=== PATIENT | male | born 1985 | race Caucasian/White ===

== ENCOUNTER → 2020-12-24 11:24 | Outpatient (CLI) | payer BC, SELFPAY ==
[2020-12-24 12:06] LABS: Hematocrit 40.6 % (41-53); Hemoglobin 13.4 g/dL (13.5-17.5); Mean Corpuscular HGB Conc 33.1 % (30-36); Mean Corpuscular Hemoglobin 26.3 PG (26-34); Mean Corpuscular Volume 79.5 fL (80-100); Platelet Count 158 X10^3/uL (150-400); Red Blood Cell Count 5.11 X10^6/uL (4.5-5.9); Red Cell Distribution Width 13.7 % (11.6-14.8); White Blood Cell Count 5.2 X10^3/uL (4.5-11.0)
[2020-12-24 12:18] LABS: Alanine Aminotransferase 36 IU/L (<50); Albumin 4.1 g/dL (3.5-5.0); Albumin Globulin Ratio 1.5 (1.0-2.8); Alkaline Phosphatase 76 U/L (38-126); Aspartate Aminotransferase 22 IU/L (17-59); BUN Creatinine Ratio 11.6 (6-22); Bilirubin Total 0.4 mg/dL (0.2-1.3); Blood Urea Nitrogen 10 mg/dL (9-20); Calcium 9.1 mg/dL (8.4-10.2); Carbon Dioxide 30 mmol/L (22-32); Chloride 106 mmol/L (98-107); Cholesterol 207 mg/dL (140-199); Estimated Glomerular Filt Rate > 60.0 mL/min (>60); Globulin 2.8 g/dL (1.7-4.1); Glucose 91 mg/dL (70-100); HDL Cholesterol 25 mg/dL (40-60); HEMOLYSIS < 15 (0-50); LDL Cholesterol Calculated 116 mg/dL (<100); Potassium 4.3 mmol/L (3.4-5.1); Sodium 139 mmol/L (137-145); Total Protein 6.9 g/dL (6.3-8.2); Triglycerides 329 mg/dL (35-150)
[2020-12-24 12:26] LABS: Hemoglobin A1C% w Est Avg Glu 5.5 % (4.0-6.0)
[2020-12-24 12:29] LABS: HEMOLYSIS < 15 (0-50)
[2020-12-24 12:32] LABS: Iron 81 ug/dL (49-181)
[2020-12-24 12:40] LABS: Transferrin 258 mg/dL (206-381)
[2020-12-24 12:45] LABS: Percent Iron Saturation 23 % (20-50); Total Iron Binding Capacity 352 ug/dL (261-462)
[2020-12-24 12:48] LABS: Ferritin 37 ng/mL (18-464)
[2020-12-24 13:07] LABS: Thyroid Stimulating Hormone 1.49 uIU/mL (0.47-4.68)
[2020-12-24 13:19] LABS: Folate > 20.0 ng/mL (2.76-20.0); Vitamin B12 457 pg/mL (239-931)
[2020-12-26 00:51] LABS: Zinc 91 ug/dL (44-115)
[2020-12-26 19:49] LABS: Vitamin D 25 Hydroxy (D3) 19.2 ng/mL (30.0-100.0)
[2020-12-27 00:35] LABS: Vitamin B1 107.7 nmol/L (66.5-200.0)
[2020-12-27 12:22] LABS: Vitamin A 47.3 ug/dL (18.9-57.3)
== END ==
PROVIDERS: PCP Physician Assistant; Referring Provider Surgery; Visit Provider Surgery
DX: Z71.3 Dietary counseling and surveillance (principal)
CPT/HCPCS: 36415; 80053; 80061; 82306; 82607; 82728; 82746; 83036; 83540; 83550; 84425; 84443; 84590; 84630; 85027

== ENCOUNTER → 2022-09-10 10:52 | Outpatient (CLI) | payer OTHER, SELFPAY ==
[2022-09-10 12:28] LABS: Add Manual Diff / Slide Review NO; Basophils Absolute Auto 0 /uL (0-100); Basophils Percent Auto 0.7 % (0-2); Eosinophils Absolute Auto 100 /uL (0-450); Eosinophils Percent Auto 1.8 % (2-4); Hematocrit 43.2 % (41-53); Hemoglobin 14.6 g/dL (13.5-17.5); Lymphocytes Absolute Auto 1400 /uL (1100-4500); Lymphocytes Percent Auto 35.4 % (25-40); Mean Corpuscular HGB Conc 33.9 % (30-36); Mean Corpuscular Hemoglobin 27.5 PG (26-34); Mean Corpuscular Volume 81.3 fL (80-100); Monocytes Absolute Auto 300 /uL (0-900); Monocytes Percent Auto 7.5 % (3-14); Neutrophils Absolute Auto 2100 /uL (1500-7000); Neutrophils Percent Auto 54.6 % (50-75); Platelet Count 147 X10^3/uL (150-400); Red Blood Cell Count 5.31 X10^6/uL (4.5-5.9); White Blood Cell Count 3.8 X10^3/uL (4.5-11.0)
[2022-09-10 12:35] LABS: Alanine Aminotransferase 40 IU/L (<50); Albumin 4.6 g/dL (3.5-5.0); Albumin Globulin Ratio 1.7 (1.0-2.8); Alkaline Phosphatase 66 U/L (38-126); Aspartate Aminotransferase 22 IU/L (17-59); BUN Creatinine Ratio 20.9 (6-22); Bilirubin Total 1.1 mg/dL (0.2-1.3); Blood Urea Nitrogen 18 mg/dL (9-20); Calcium 9.8 mg/dL (8.4-10.2); Carbon Dioxide 31 mmol/L (22-32); Chloride 103 mmol/L (98-107); Cholesterol 199 mg/dL (140-199); Estimated Glomerular Filt Rate > 60 mL/min (>60); Globulin 2.7 g/dL (1.7-4.1); Glucose 75 mg/dL (70-100); HDL Cholesterol 42 mg/dL (40-60); HEMOLYSIS < 15 (0-50); LDL Cholesterol Calculated 124 mg/dL (<100); Potassium 4.1 mmol/L (3.4-5.1); Sodium 140 mmol/L (137-145); Total Protein 7.3 g/dL (6.3-8.2); Triglycerides 167 mg/dL (35-150)
[2022-09-10 12:55] LABS: HEMOLYSIS < 15 (0-50); Iron 199 ug/dL (49-181)
[2022-09-10 13:05] LABS: Percent Iron Saturation 69 % (20-50); Total Iron Binding Capacity 290 ug/dL (261-462); Transferrin 243 mg/dL (206-381)
[2022-09-10 13:07] LABS: Prostate Specific Antigen 1.33 ng/mL (0.10-4.00)
[2022-09-10 13:11] LABS: Ferritin 79 ng/mL (18-464)
[2022-09-10 13:26] LABS: Vitamin B12 750 pg/mL (239-931)
[2022-09-10 13:39] LABS: Luteinizing Hormone 2.16 mIU/mL
[2022-09-10 16:41] LABS: Vitamin D 25 Hydroxy (D3) 42.6 ng/mL (30.0-100.0)
[2022-09-11 10:15] LABS: Sex Hormone Binding Globulin 40.3 nmol/L (16.5-55.9)
[2022-09-12 00:09] LABS: Calcium 9.9 mg/dL (8.7-10.2); Parathyroid Hormone, Intact 28 pg/mL (15-65)
[2022-09-17 12:19] LABS: Testosterone Fr+Wkly bound 109.5 ng/dL (40.0-250.0); Testosterone, Total 497.9 ng/dL (264.0-916.0)
== END ==
PROVIDERS: PCP Family Medicine; Referring Provider Family Medicine; Visit Provider Family Medicine
DX: E29.1 Testicular hypofunction (principal); E34.9 Endocrine disorder, unspecified; E61.9 Deficiency of nutrient element, unspecified; Z98.84 Bariatric surgery status; I48.0 Paroxysmal atrial fibrillation
CPT/HCPCS: 36415; 80053; 80061; 82306; 82310; 82607; 82728; 82746; 83001; 83002; 83540; 83550; 83970; 84153; 84270; 84403; 85025

== ENCOUNTER → 2023-04-08 13:12 | Outpatient (CLI) | payer OTHER, SELFPAY ==
[2023-04-08 13:51] LABS: Add Manual Diff / Slide Review NO; Basophils Absolute Auto 0 /uL (0-100); Basophils Percent Auto 0.6 % (0-2); Eosinophils Absolute Auto 200 /uL (0-450); Eosinophils Percent Auto 3.5 % (2-4); Hematocrit 39.3 % (41-53); Hemoglobin 13.2 g/dL (13.5-17.5); Lymphocytes Absolute Auto 1500 /uL (1100-4500); Lymphocytes Percent Auto 28.4 % (25-40); Mean Corpuscular HGB Conc 33.6 % (30-36); Mean Corpuscular Hemoglobin 27.3 PG (26-34); Monocytes Absolute Auto 500 /uL (0-900); Neutrophils Absolute Auto 3100 /uL (1500-7000); Neutrophils Percent Auto 58.5 % (50-75); Platelet Count 133 X10^3/uL (150-400); Red Blood Cell Count 4.85 X10^6/uL (4.5-5.9); Red Cell Distribution Width 13.4 % (11.6-14.8); White Blood Cell Count 5.3 X10^3/uL (4.5-11.0)
[2023-04-08 14:01] LABS: Alanine Aminotransferase 55 IU/L (<50); Albumin 4.2 g/dL (3.5-5.0); Albumin Globulin Ratio 1.7 (1.0-2.8); Alkaline Phosphatase 60 U/L (38-126); Aspartate Aminotransferase 28 IU/L (17-59); BUN Creatinine Ratio 20.5 (6-22); Bilirubin Total 0.7 mg/dL (0.2-1.3); Blood Urea Nitrogen 17 mg/dL (9-20); Calcium 8.9 mg/dL (8.4-10.2); Carbon Dioxide 29 mmol/L (22-32); Chloride 104 mmol/L (98-107); Estimated Glomerular Filt Rate > 60 mL/min (>60); Globulin 2.5 g/dL (1.7-4.1); Glucose 79 mg/dL (70-100); HEMOLYSIS < 15 (0-50); Potassium 3.7 mmol/L (3.4-5.1); Sodium 139 mmol/L (137-145); Total Protein 6.7 g/dL (6.3-8.2)
[2023-04-08 14:32] LABS: Prostate Specific Antigen 0.543 ng/mL (0.10-4.00); TSH w/ Reflex to FT4 1.86 uIU/mL (0.47-4.68)
[2023-04-08 14:34] LABS: Testosterone 407 ng/dL (132-813)
== END ==
PROVIDERS: PCP Nurse Practitioner Family; Referring Provider Nurse Practitioner Family; Visit Provider Nurse Practitioner Family
DX: E29.1 Testicular hypofunction (principal); F90.9 Attention-deficit hyperactivity disorder, unspecified type
CPT/HCPCS: 36415; 80053; 84153; 84403; 84443; 85025

== ENCOUNTER → 2023-08-17 10:16 | Outpatient (CLI) | payer OTHER, SELFPAY ==
[2023-08-19 06:53] LABS: PSA, Total 0.6 ng/mL (0.0-4.0)
[2023-08-23 18:06] LABS: Percent Free Testosterone 2.23 % (1.50-4.20); Testosterone Free 6.26 ng/dL (5.00-21.00); Testosterone Total 280.9 ng/dL (264.0-916.0)
== END ==
PROVIDERS: PCP Nurse Practitioner Family; Referring Provider Nurse Practitioner Family; Visit Provider Nurse Practitioner Family
DX: E29.1 Testicular hypofunction (principal)
CPT/HCPCS: 36415; 84153; 84154; 84402; 84403

== ENCOUNTER → 2023-09-04 13:41 | Outpatient (CLI) | payer OTHER, SELFPAY ==
[2023-09-04 14:20] LABS: Add Manual Diff / Slide Review NO; Basophils Absolute Auto 0 /uL (0-100); Basophils Percent Auto 0.5 % (0-2); Eosinophils Absolute Auto 100 /uL (0-450); Eosinophils Percent Auto 2.5 % (2-4); Hematocrit 41.7 % (41-53); Hemoglobin 14.1 g/dL (13.5-17.5); Lymphocytes Absolute Auto 1300 /uL (1100-4500); Lymphocytes Percent Auto 30.3 % (25-40); Mean Corpuscular HGB Conc 33.9 % (30-36); Mean Corpuscular Hemoglobin 27.7 PG (26-34); Mean Corpuscular Volume 81.8 fL (80-100); Monocytes Absolute Auto 300 /uL (0-900); Monocytes Percent Auto 6.6 % (3-14); Neutrophils Absolute Auto 2700 /uL (1500-7000); Neutrophils Percent Auto 60.1 % (50-75); Platelet Count 169 X10^3/uL (150-400); Red Cell Distribution Width 13.3 % (11.6-14.8); White Blood Cell Count 4.4 X10^3/uL (4.5-11.0)
[2023-09-05 15:10] LABS: Cholesterol HDL Ratio 4.7 ratio (0.0-5.0); Cholesterol,Total 207 mg/dL (100-199); HDL Cholesterol 44 mg/dL (>39); LDL Cholesterol Cal 128 mg/dL (0-99); Triglycerides 199 mg/dL (0-149); VLDL Cholesterol Cal 35 mg/dL (5-40)
[2023-09-06 11:50] LABS: PSA, Total 0.6 ng/mL (0.0-4.0)
[2023-09-11 20:35] LABS: Percent Free Testosterone 1.63 % (1.50-4.20); Testosterone Free 3.35 ng/dL (5.00-21.00); Testosterone Total 205.5 ng/dL (264.0-916.0)
== END ==
PROVIDERS: PCP Nurse Practitioner Family; Referring Provider Nurse Practitioner Family; Visit Provider Nurse Practitioner Family
DX: Z13.220 Encounter for screening for lipoid disorders (principal); E29.1 Testicular hypofunction
CPT/HCPCS: 36415; 80061; 84153; 84154; 84402; 84403; 85025

== ENCOUNTER → 2023-10-13 11:19 | Outpatient (CLI) | payer OTHER, SELFPAY ==
--- NOTE | 2023-10-13 | DI.MRI.S_ITS ---
PROCEDURE: MR BRAIN (PITUITARY) WWO CON INDICATIONS: Testicular hypofunction TECHNIQUE: Noncontrast sagittal and axial FLAIR, axial gradient echo, axial diffusion and ADC through the brain. Thin-slice sagittal and coronal T1 spin echo, coronal T2 fast spin echo through the pituitary. After the administration contrast, optional dynamic coronal T1 spin echo, thin-slice coronal and sagittal T1 spin echo images through the pituitary fossa; axial and coronal and sagittal T1 spin echo with fat saturation through the brain. COMPARISON: None. FINDINGS: Image quality: Diagnostic. Pituitary Gland: The pituitary gland demonstrates normal signal and bulk. On the postcontrast imaging, no masses or abnormally enhancing areas are seen. The pituitary stalk and infundibulum have an unremarkable appearance. A normal appearing pituitary bright spot is seen posteriorly on the precontrast sagittal T1-weighted images. The optic chiasm and the ventral forebrain have an unremarkable appearance. CSF Spaces: Ventricles are normal in size and shape. Basal cisterns are patent. No extra-axial fluid collections. Brain: No intracranial bleeds or mass effects. No abnormal intracranial enhancement. Elias-white matter interface is intact. Diffusion weighted images demonstrate no acute ischemic insults. Brainstem is normal. Normal intravascular flow voids are present. Skull and face: Calvarial marrow is normal in signal. Orbits appear normal. Sinuses: Prominent mucous retention cysts can be seen involving both maxillary sinuses. Mild mucosal thickening is seen scattered within the paranasal sinuses. No abnormal fluid is seen within the mastoid air cells. IMPRESSION: Normal pituitary, without an imaging explanation found for the patient's presenting history. Dictated by: Tristan Cotto M.D. on 10/13/2023 at 12:01 Approved by: Tristan Cotto M.D. on 10/13/2023 at 12:03
== END ==
PROVIDERS: PCP Nurse Practitioner Family; Referring Provider Nurse Practitioner Family; Visit Provider Nurse Practitioner Family
DX: E29.1 Testicular hypofunction (principal)
CPT/HCPCS: 70553